=== PATIENT | male | born 1990 | race Caucasian/White ===

== ENCOUNTER 2016-07-11 12:07 | Emergency (ER) | payer OTHER ==
[2016-07-11 12:26] VITALS: BP 133/81
--- NOTE | 2016-07-11 12:45 | ER Document Report ---
HPI - HPI Patient complains to provider of: low back pain Onset: Other - over 8 months Onset/Duration: Persistent Quality of pain: Achy Severity: Moderate Pain Level: 3 Context: Patient presents emergency department with complaints of low back pain for the past 8 months. He denies injury. He reports the pain just started for no reason. He was working out but has quit doing that. He reports that he has been evaluated at an urgent care [facility] [place] and referred to physical therapy but he is still hurting. Patient is [employer]. He reports he just got transferred here. He denies fever vomiting diarrhea. He denies urinary or bowel incontinence or retention. He denies numbness or tingling. Patient ambulating without problems. Associated Symptoms: None Exacerbated by: Denies Relieved by: Denies Similar symptoms previously: Yes Recently seen / treated by doctor: Yes - DERM Skin Color: Normal Past Medical History - General Information source: Patient - Social History Smoking Status: Unknown if Ever Smoked Cigarette use (# per day): No Frequency of alcohol use: Occasional Drug Abuse: None Occupation: [employer] Family History: None Patient has suicidal ideation: No Patient has homicidal ideation: No - Medical History Medical History: Negative Renal/ Medical History: Denies: Hx Peritoneal Dialysis Surgical Hx: Negative Vertical Provider Document - CONSTITUTIONAL Agree With Documented VS: Yes Exam Limitations: No Limitations General Appearance: WD/WN, No Apparent Distress - INFECTION CONTROL TRAVEL OUTSIDE OF THE [place] IN LAST 30 DAYS: No - HEENT HEENT: Atraumatic, Normocephalic - NECK Neck: Normal Inspection, Supple. negative: Lymphadenopathy-Left, Lymphadenopathy-Right - RESPIRATORY Respiratory: Breath Sounds Normal, No Respiratory Distress O2 Sat by Pulse Oximetry: 100 - CARDIOVASCULAR Cardiovascular: Regular Rate - BACK Back: Normal Inspection - No obvious deformity no swelling no erythema no warmth good distal movement and sensation no weakness Course - Re-evaluation Re-evalutation: 07/11/16 The patient presents with low back pain without signs of spinal cord compression , cauda equine syndrome, infection, aneurysm, or other serious etiology. The patient is neurologically intact. The patient has good distal movement and sensation, denies urinary or bowel incontinence/retention. Given the extremely low risk of these diagnosis, further testing and evaluation for these possibilities does not appear to be indicated at this time. The patient has been instructed to return if the symptoms worsen or change in anyway. - Vital Signs Vital signs: Temp Pulse Resp BP Pulse Ox 98.2 F 65 16 133/81 H 100 07/11/16 12:24 07/11/16 12:24 07/11/16 12:24 07/11/16 12:24 07/11/16 12:24 Discharge - Discharge Clinical Impression: Elevated blood pressure reading Chronic back pain Qualifiers: Back pain location: low back pain Back pain laterality: midline Sciatica presence: without sciatica Qualified Code(s): M54.5 - Low back pain Condition: Stable Disposition: HOME, SELF-CARE Instructions: Low Back Pain ([facility]), Ice Packs ([facility]), Family Physicians / Practices Additional Instructions: *You have been evaluated for chronic low back pain, elevated blood pressure reading *Take ibuprofen or tylenol as indicated for pain *Follow up with a primary care provider within one week for evaluation and referral as indicated *Return to ED for worsening condition, changes, needs Monitor your blood pressure. Your blood pressure was elevated today. This may be because you were anxious, in pain or because you need medication. It is important to follow up with your primary care provider for full evaluation. Forms: Elevated Blood Pressure
== END 2016-07-11 12:50 | disposition home or self-care (01) ==
LOC: ER 12:07
DX: M54.5 Low back pain (principal); R03.0 Elevated blood-pressure reading, without diagnosis of hypertension
CPT/HCPCS: 99283

== ENCOUNTER 2016-08-28 17:41 | Emergency (ER) | payer OTHER ==
[2016-08-28] MEDS ORDERED: DIPH/PERTUSS(ACELL)/TETANUS VAC/PF 0.5 ML SYR (>=10YO) IM ONE (18:24)
--- NOTE | 2016-08-28 18:43 | ER Document Report ---
HPI - HPI Pain Level: 3 Notes: Is a 25-year-old male presents to the ED complaining of left lateral plantar foot pain that began prior to arrival. Patient states that he was out in his yard barefoot and he felt something sharp to his left lateral foot. He denies seeing any spiders or snakes. He is not sure if he stepped on a plants or got bit or stung by an insect. He has not noticed any bleeding or discharge from the site. Patient states that the area is a little bit red. Patient states that it felt like a sharp puncture, superficial. The pain does not radiate. Patient states that the pain feels like a throb now. His last tetanus was approximately 7 years ago. No other concerns or complaints. Denies any headache, fever, URI, sore throat, chest pain, palpitations, syncope, cough, wheeze, shortness of breath, abdominal pain, nausea/vomiting/diarrhea, dysuria, joint pain, or rash. - ROS Notes: REVIEW OF SYSTEMS: CONSTITUTIONAL : Denies fever, chills, or sweats. Denies recent illness. EENT: Denies eye, ear, throat, or mouth pain or symptoms. Denies nasal or sinus congestion or discharge. Denies throat, tongue, or mouth swelling or difficulty swallowing. CARDIOVASCULAR: Denies chest pain. Denies palpitations or racing or irregular heart beat. Denies ankle edema. RESPIRATORY: Denies cough, cold, or chest congestion. Denies shortness of breath, difficulty breathing, or wheezing. GASTROINTESTINAL: Denies abdominal pain or distention. Denies nausea, vomiting , or diarrhea. Denies blood in vomitus, stools, or per rectum. Denies black, tarry stools. Denies constipation. GENITOURINARY: Denies difficulty urinating, painful urination, burning, frequency, blood in urine, or discharge. MUSCULOSKELETAL: see hpi SKIN: see hpi NEUROLOGICAL: Denies confusion or altered mental status. Denies passing out or loss of consciousness. Denies dizziness or lightheadedness. Denies headache. Denies weakness or paralysis or loss of use of either side. Denies problems with gait or speech. Denies sensory loss, numbness, or tingling. ALL OTHER SYSTEMS REVIEWED AND NEGATIVE. Dictation was performed using [employer] voice recognition software - CARDIOVASCULAR Cardiovascular: DENIES: Chest pain - DERM Skin Color: Normal Past Medical History - Social History Smoking Status: Never Smoker Frequency of alcohol use: Occasional Drug Abuse: None Family History: None Patient has suicidal ideation: No Patient has homicidal ideation: No Renal/ Medical History: Denies: Hx Peritoneal Dialysis Surgical Hx: Negative Vertical Provider Document - CONSTITUTIONAL Agree With Documented VS: Yes Notes: PHYSICAL EXAMINATION: GENERAL: Well-appearing, well-nourished and in no acute distress. LUNGS: Breath sounds clear to auscultation bilaterally and equal. No wheezes rales or rhonchi. HEART: Regular rate and rhythm without murmurs, rubs, gallops. Musculoskeletal: Lt foot: FROM to passive/active. Strength 5+/5. + tenderness to left lateral foot in one specified area, where suspected puncture/bite was. The skin does not show any obvious puncture, bite, or laceration/abrased site. There is a very mild erythemic (0.25cm) area to the lateral plantar foot. No obvious foreign body by palpation noted. Tenderness is superficial and not to deep palpation. No bony tenderness. No skin trauma noted with magnifier. Extremities: No cyanosis, clubbing, or edema b/l. Peripheral pulses 2+. Capillary refill less than 3 seconds. NEUROLOGICAL: normal gait. Normal sensory, motor exams PSYCH: Normal mood, normal affect. SKIN: Warm, Dry, normal turgor, no rashes or lesions noted. - INFECTION CONTROL TRAVEL OUTSIDE OF THE [place] IN LAST 30 DAYS: No - RESPIRATORY O2 Sat by Pulse Oximetry: 100 Course - Re-evaluation Re-evalutation: 08/28/16 18:57 Patient is an afebrile, well-hydrated, 25-year-old male who presents to the ED with left plantar lateral foot pain, ? Puncture/insect bite/sting. Are stable. PE otherwise unremarkable. There is no break in the skin at all. Low suspicion for any retained foreign body, snakebite, insect bite causing necrotic tissue, septic joint, or sepsis. After reviewing the risks and benefits, it was jointly agreed upon that we would perform watchful waiting with conservative treatment. Recommend Benadryl/Pepcid, Benadryl cream, cortisone cream, Epsom salts of, ice, and elevation at this time. Tdap given today. He is to monitor closely for any acute changes in symptoms or signs of infection. Recheck with your PCM in 3-5 days. Consider consult with podiatry. Return to the ED with any worsening/concerning symptoms as reviewed in discharge. Patient is in agreement. - Vital Signs Vital signs: Temp Pulse Resp BP Pulse Ox 98.1 F 78 20 150/92 H 100 08/28/16 17:51 08/28/16 17:51 08/28/16 18:11 08/28/16 17:51 08/28/16 17:51 Discharge - Discharge Clinical Impression: Foot pain, left Condition: Stable Disposition: HOME, SELF-CARE Additional Instructions: Keep foot clean Epsom salt soaks Rest, ice, compression, elevation May take oral benadryl/pepcid May apply cortisone/benadryl cream to foot Monitor for any acute changes or signs of infection Recheck with PCM in 3-5 days. Return to the ED with any worsening symptoms and/or development of fever, headache, chest pain, palpitations, syncope, shortness of breath, trouble breathing, abdominal pain, n/v/d, muscle weakness/paralysis, numbness/tingling, abscess, red streaks, purulent discharge, or other worsening symptoms that are concerning to you. Forms: Elevated Blood Pressure Referrals: [facility] [Provider Group] - Follow up as needed [facility] ([facility]) [Provider Group] - Follow up as needed
[2016-08-28 19:14] VITALS: BP 120/74
== END 2016-08-28 18:52 | disposition home or self-care (01) ==
LOC: ER 17:41
DX: M79.672 Pain in left foot (principal)
CPT/HCPCS: 90471; 90715; 99283